=== PATIENT | male | born 1975 | race Caucasian/White ===

== ENCOUNTER 2025-06-22 06:20 | Day surgery (SDC) | payer OTHER ==
[2025-06-14 11:16] VITALS: BMI 25.9
[2025-06-22 09:38] VITALS: TEMP 97.9
[2025-06-22 11:29] VITALS: RESP 18
[2025-06-22 11:40] VITALS: BP 131/86; PULSE 59
== END 2025-06-22 11:40 | disposition home or self-care (01) ==
LOC: JASU-ENDO 06:20
PROVIDERS: ATTEND Internal Medicine Gastroenterology
PROC: 0DBH8ZX Excision of Cecum, Via Natural or Artificial Opening Endoscopic, Diagnostic (ICD-10-PCS; principal; 2025-06-22 10:00)
DX: Z12.11 Encounter for screening for malignant neoplasm of colon (principal); D12.0 Benign neoplasm of cecum; K64.8 Other hemorrhoids
CPT/HCPCS: 88305-TC